=== PATIENT | female | born 1985 | race Caucasian/White ===

== ENCOUNTER 2022-07-25 09:48 | Day surgery (SDC) | payer BC ==
[~2022-07-25] VITALS: Ht 162.6 cm; Wt 77.3 kg
[~2022-07-25 09:48] MED LIST: ADDERALL 10 MG10 MG PO; ALBUTEROL S5 MG/1 ML INH; IMITREX25 MG PO; LEXAPRO10 MG PO; MULTIVITAMINS1 EAC7 PO; PERCOCET 7.5-31 EACH PO; PRENATAL 19 TA1 EAC1 PO; PROTONIX40 MG PO; TUMS200 MG PO; WELLBUTRIN XL150 MG PO; ZOLOFT20 MG/1 ML PO
--- NOTE | 2022-07-25 12:05 | NUR ---
1155: PATIENT UPDATED ON WAITING TIME. GIVEN ANOTHER WARM BLANKET. NO NEEDS AT THIS TIME. CALL LIGHT WITHIN REACH. SISTER AT BEDSIDE.
--- NOTE | 2022-07-25 13:50 | NUR ---
07/25/22 1350 Alva Miranda 1184-PATIENT ARRIVED TO PACU ON 6L MASK RR EVEN REACTIVE TO VERBAL STIMULI VERY DROWSY . PATIENT LAYING LEFT LATERAL. IVF INFUSING. SR.
--- NOTE | 2022-07-25 15:04 | NUR ---
C/O PAIN 11/12. JELLO AND CRACKERS GIVEN PER PT REQUEST.THEN PAIN MEDICINE.
--- NOTE | 2022-07-26 08:33 | OR ---
[facility] [address], [place] [address] Signed DATE OF OPERATION: 07/25/2022 SURGEON: Noa De Oliveira MD PREOPERATIVE DIAGNOSES: IUD in situ, menometrorrhagia, prior tubal ligation POSTOPERATIVE DIAGNOSES: IUD in situ, menometrorrhagia, prior tubal ligation PROCEDURE: Removal of IUD, NovaSure endometrial ablation. ANESTHESIA: General LMA and paracervical block. ESTIMATED BLOOD LOSS: Minimal. DRAINS: None. INDICATIONS AND FINDINGS: The patient is a 37-year-old female, who has undergone permanent sterilization with bilateral salpingectomy, currently using the Mirena, who desires an endometrial ablation. She has been having abnormal bleeding and wished to avoid further hormonal treatment. At the time of surgery, her uterus sounded to 10 cm. DESCRIPTION OF PROCEDURE: The patient was prepped and draped in the dorsal lithotomy position. An open-sided speculum was placed. The anterior lip of the cervix was visualized and grasped with a single-tooth tenaculum. A paracervical block was placed injecting 5 cc of 1% lidocaine plain at 2, 4, 8, and 10 o'clock. The cavity was sounded to 10 cm of which 4 cm was the cervix. The endocervical canal was then dilated and the IUD removed without difficulty. The NovaSure device was then introduced with the 6 cm depth of the uterus and the device deployed with a 3.4 cm width. The integrity test was done without any evidence of a leak. The cycle was then begun and this lasted for 48 seconds. The device was retracted into the sheath and removed from the uterus. The tenaculum was removed as well. There was no evidence of any ongoing bleeding. She tolerated the procedure well and was taken to the recovery room in good condition. Electronically Signed By: NOA DE OLIVEIRA MD 07/26/22 0833 PATIENT NAME: MINNIE XIE JANE OPERATIVE REPORT DATE OF : 83 REPORT #: [id number] PHYSICIAN: NOA DE OLIVEIRA MD PCP: [facility] PAC REPORT IS CONFIDENTIAL AND NOT TO BE RELEASED WITHOUT AUTHORIZATION [address] [address] Signed Noa De Oliveira MD PJW/MODL /[id number] Copies: ~ Electronically Signed By: NOA DE OLIVEIRA MD 07/26/22 0833 PATIENT NAME: ROJASMINNIE OPERATIVE REPORT DATE OF : 83 REPORT #: [id number] PHYSICIAN: NOA DE OLIVEIRA MD PCP: [facility] REPORT IS CONFIDENTIAL AND NOT TO BE RELEASED WITHOUT AUTHORIZATION
--- NOTE | 2022-07-26 09:03 | NUR ---
07/25/22 1600: PATIENT UP TO BATHROOM WITH HELP FROM SISTER. UNABLE TO MEASURE VOID. PATIENT STATES VOIDED ADEQUATE AMOUNT. DENIES DIFFICULTY EMPTYING BLADDER. PATIENT GETTING DRESSED. SISTER IN ROOM WITH PATIENT. 07/25/22 1623: DISCHARGE INSTRUCTIONS GIVEN TO PATIENT AND SISTER. IV DC'D WNL. TIP INTACT. DRESSING APPLIED. PATIENT DISCHARGED TO HOME VIA WHEELCHAIR WITH SISTER.
== END 2022-07-25 16:23 | disposition home or self-care (01) ==
LOC: DS 09:48
PROVIDERS: ATTEND Obstetrics & Gynecology
PROC: 0U5B7ZZ Destruction of Endometrium, Via Natural or Artificial Opening (ICD-10-PCS; principal; 2022-07-25 12:30)
DX: N92.1 Excessive and frequent menstruation with irregular cycle (principal); N94.6 Dysmenorrhea, unspecified; F90.9 Attention-deficit hyperactivity disorder, unspecified type; F32.A Depression, unspecified; K21.9 Gastro-esophageal reflux disease without esophagitis; E66.9 Obesity, unspecified; Z97.5 Presence of (intrauterine) contraceptive device; Z98.51 Tubal ligation status; Z79.899 Other long term (current) drug therapy; Z88.1 Allergy status to other antibiotic agents; Z88.2 Allergy status to sulfonamides; Z88.8 Allergy status to other drugs, medicaments and biological substances; Z68.33 Body mass index [BMI] 33.0-33.9, adult
CPT/HCPCS: J0131; J0690; J1100; J1885; J2001; J2405; J2704; J2765; J3010; J7121